=== PATIENT | female | born 1990 | race African-American/Black ===

== ENCOUNTER 2024-12-17 17:40 | Emergency (ER) | payer MEDICAID ==
[2024-12-17] MEDS: Sodium Chloride 0.9% 1,000 ML IV ONE (19:42)
[2024-12-17] MEDS: Dextrose 5%-0.9% NaCl 1,000 ML IV SCH (19:59)
[2024-12-17] MEDS: Dicyclomine 10 MG Cap PO ONE (19:59)
[2024-12-17 20:25] LABS: BILIRUBIN,URINE NEGATIVE (NEGATIVE); COLOR,URINE YELLOW; GLUCOSE,URINE NEGATIVE (NEGATIVE); KETONES,URINE 15 mg/dL (NEGATIVE); LEUKOCYTE ESTERASE,URINE NEGATIVE (NEGATIVE); NITRITE,URINE NEGATIVE (NEGATIVE); OCCULT BLOOD,URINE TRACE-INTACT (NEGATIVE); PROTEIN,URINE NEGATIVE (NEGATIVE)
[2024-12-17 21:02] LABS: APPEARANCE,URINE HAZY
[2024-12-17 21:03] LABS: BACTERIA,URINE FEW (NEGATIVE); EPITHELIAL CELLS,URINE FEW (NONE-FEW); MUCUS,URINE FEW (NONE-MOD); RBC,URINE 0-2 (0-2/HPF); WBC,URINE 0-3 (0-5/HPF); YEAST,URINE RARE
== END 2024-12-17 22:15 | disposition home or self-care (01) ==
LOC: MW.ED 17:40
DX: O99.891 Other specified diseases and conditions complicating pregnancy (principal); R10.9 Unspecified abdominal pain; Z75.3 Unavailability and inaccessibility of health-care facilities; Z3A.16 16 weeks gestation of pregnancy
CPT/HCPCS: 36415; 81001; 83690; 96360; 96361; 99284; A9270; J7042; 99283

== ENCOUNTER 2025-05-26 18:28 | Inpatient (IN) | payer MEDICAID ==
[2025-05-26] MEDS ORDERED: Water For Irrigation,Sterile 1,000 ML Container IRR PRN (19:08)
[2025-05-26] MEDS ORDERED: Sodium Chloride 0.9% 2.5 ML Syringe FLUSH PRN (19:08)
[2025-05-26] MEDS ORDERED: Sodium Chloride 0.9% 10 ML Syringe FLUSH PRN (19:08)
[2025-05-26] MEDS ORDERED: Carboprost Tromethamine 250 MCG/1 mL Vial IM PRN (19:08)
[2025-05-26] MEDS: Lactated Ringers 1,000 ML IV SCH (19:58)
[2025-05-26] MEDS: Butorphanol 1 MG/ML SDV IVPUSH PRN (19:59)
[2025-05-26 20:24] LABS: MEAN PLATELET VOLUME 10.1 fL (9.4-12.3); NRBC ABSOLUTE 0.00 K/uL (0.00-0.02); NRBC PERCENT 0.0 /100WBC (0.0-0.2); PLATELET COUNT,PLT 191 K/uL (150-400); RED BLOOD CELL COUNT 4.55 M/uL (4.10-5.30); WHITE BLOOD CELL COUNT,WBC 7.68 K/uL (3.9-11.3)
[2025-05-26 20:57] LABS: A/G RATIO 0.7 (0.9-1.6); ALANINE AMINOTRANSFERASE,ALT 43.0 IU/L (14-63); ASPARTATE AMNIOTRANSFERASE,AST 40.0 IU/L (15-37); BILIRUBIN TOTAL 0.9 mg/dL (0.2-1.0); BLOOD UREA NITROGEN,BUN 6.0 mg/dL (7.0-18.0); CARBON DIOXIDE,CO2 24.0 mmol/L (21.0-32.0); CHLORIDE,CL 103.0 mmol/L (98-107); CREATININE 0.6 mg/dL (0.6-1.0); EST CRCL DRUG DOSING (CG) 115.16 mL/min; GLUCOSE RANDOM 69.0 mg/dL (74-106); POTASSIUM,K 4.1 mmol/L (3.5-5.1); PROTEIN TOTAL,TP 7.0 g/dL (6.4-8.2); SODIUM,NA 138.0 mmol/L (136-145)
[2025-05-26 21:00] LABS: ESTIMATED GFR 121.0 mL/min (>60)
[2025-05-26 21:08] LABS: CREATININE,URINE RAND 181.2 mg/dL; PROTEIN CREATININE RATIO,URINE 0.1; PROTEIN,URINE RANDOM 25.8 mg/dL (<11.9)
[2025-05-26 22:07] LABS: C. TRACHOMATIS BY PCR NOT DETECTED; N. GONORRHOEAE BY PCR NOT DETECTED
[2025-05-26] MEDS: Oxytocin/0.9 % Sodium Chloride 30 UNIT/500 ML BAG IV SCH (22:47)
[2025-05-26] MEDS ORDERED: Aluminum Hydroxide/Magnesium Hydroxide/Simethicone Susp 30 ML Cup PO PRN (23:19)
[2025-05-26] MEDS ORDERED: Ondansetron 4 MG/2 ML SDV IVPUSH PRN (23:19)
[2025-05-26 23:52] LABS: PH,UMBILICAL ARTERIAL 7.3 (7.18-7.38); PH,UMBILICAL VENOUS 7.44 (7.25-7.45)
[2025-05-27] MEDS: Benzocaine/Menthol 20%-0.5% Spray 78 GM Cannister TOP PRN (04:23)
[2025-05-27] MEDS: Witch Hazel Medicated Pads 40/Jar TOP PRN (04:23)
[2025-05-27] MEDS: Lanolin 100% Cream 7 GM Tube TOP PRN (04:24)
[2025-05-27 05:55] LABS: BASOPHILS ABSOLUTE AUTO 0.01 K/uL (0.00-0.20); BASOPHILS PERCENT AUTO 0.1 % (0.0-1.0); EOSINOPHILS ABSOLUTE AUTO 0.01 K/uL (0.00-0.45); EOSINOPHILS PERCENT AUTO 0.1 % (0.0-6.0); IMMATURE GRAN ABSOLUTE AUTO 0.03 K/uL (0.00-0.05); IMMATURE GRAN PERCENT AUTO 0.3 % (0.0-0.4); LYMPHOCYTES ABSOLUTE AUTO 0.93 K/uL (1.00-4.80); LYMPHOCYTES PERCENT AUTO 9.0 % (24.0-44.0); MEAN PLATELET VOLUME 10.0 fL (9.4-12.3); MONOCYTES ABSOLUTE AUTO 1.39 K/uL (0.00-0.80); MONOCYTES PERCENT AUTO 13.4 % (0.0-8.0); NEUTROPHILS ABSOLUTE AUTO 7.98 K/uL (1.80-7.70); NEUTROPHILS PERCENT AUTO 77.1 % (41.0-71.0); NRBC ABSOLUTE 0.00 K/uL (0.00-0.02); NRBC PERCENT 0.0 /100WBC (0.0-0.2); PLATELET COUNT,PLT 173 K/uL (150-400); RED BLOOD CELL COUNT 3.88 M/uL (4.10-5.30); WHITE BLOOD CELL COUNT,WBC 10.35 K/uL (3.9-11.3)
[2025-05-27 08:38] LABS: A/G RATIO 0.6 (0.9-1.6); ALANINE AMINOTRANSFERASE,ALT 42.0 IU/L (14-63); ASPARTATE AMNIOTRANSFERASE,AST 38.0 IU/L (15-37); BILIRUBIN TOTAL 0.8 mg/dL (0.2-1.0); BLOOD UREA NITROGEN,BUN 5.0 mg/dL (7.0-18.0); CARBON DIOXIDE,CO2 24.8 mmol/L (21.0-32.0); CHLORIDE,CL 105.0 mmol/L (98-107); CREATININE 0.8 mg/dL (0.6-1.0); EST CRCL DRUG DOSING (CG) 86.37 mL/min; GLUCOSE RANDOM 105.0 mg/dL (74-106); POTASSIUM,K 3.9 mmol/L (3.5-5.1); PROTEIN TOTAL,TP 6.1 g/dL (6.4-8.2); SODIUM,NA 138.0 mmol/L (136-145)
[2025-05-27 08:39] LABS: ESTIMATED GFR 100.0 mL/min (>60)
[2025-05-28] MEDS: Measles, Mumps & Rubella Vaccine 0.5 ML SDV SUBCUT ONE (13:51)
== END 2025-05-28 15:00 | disposition home or self-care (01) | DRG 807 ==
LOC: MW.OB 18:28 → MW.OBCHECK 18:28 → MW.OB 18:45 → OBSVTOIN 22:45 → MW.OB 05-27 02:12
PROVIDERS: ADMIT Obstetrics & Gynecology; ATTEND Obstetrics & Gynecology
PROC: 10E0XZZ Delivery of Products of Conception, External Approach (ICD-10-PCS; principal; 2025-05-26)
PROC: 0HQ9XZZ Repair Perineum Skin, External Approach (ICD-10-PCS; 2025-05-26)
PROC: 3E03329 Introduction of Other Anti-infective into Peripheral Vein, Percutaneous Approach (ICD-10-PCS; 2025-05-26)
DX: O34.13 Maternal care for benign tumor of corpus uteri, third trimester (principal); Z37.0 Single live birth; O69.81X0 Labor and delivery complicated by cord around neck, without compression, not applicable or unspecified; O70.0 First degree perineal laceration during delivery; D25.9 Leiomyoma of uterus, unspecified; R74.01 Elevation of levels of liver transaminase levels; O36.5930 Maternal care for other known or suspected poor fetal growth, third trimester, not applicable or unspecified; O99.891 Other specified diseases and conditions complicating pregnancy; R82.71 Bacteriuria; Z3A.39 39 weeks gestation of pregnancy
CPT/HCPCS: 36415; 59025; 59409; 76805; 76805-26; 80053; 82570; 82803; 84156; 85025; 85027; 86592; 86850; 86900; 86901; 87491; 87591; A9270-GY; J0290; J0595; J2003; J2590; J7120